=== PATIENT | female | born 1955 | race Caucasian/White ===

== ENCOUNTER 2017-12-23 05:00 | Day surgery (SDC) | payer OTHER ==
[~2017-12-23] VITALS: Ht 152.4 cm; Wt 72.6 kg
[~2017-12-23 05:00] MED LIST: SYNTHROID88 MCG PO
== END 2017-12-23 13:00 | disposition home or self-care (01) ==
LOC: CIR.AMB 05:00 → SURH 08:30 → EDSTATUS 10:30 → O/R 11:10 → CIR.AMB 13:00
DX: K80.10 Calculus of gallbladder with chronic cholecystitis without obstruction (principal)